=== PATIENT | female | born 2000 | race Caucasian/White ===

== ENCOUNTER 2023-12-22 08:26 | Day surgery (SDC) | payer BC, OTHER ==
[~2023-12-22 08:26] MED LIST: Sodium Chloride 0.9% 10 ML Syringe FLUSH PRN; Sodium Chloride 0.9% 10 ML Syringe FLUSH SCH
[2023-12-22] MEDS ORDERED: fentaNYL 100 MCG/2 ML SDV IVPUSH PRN (09:20)
[2023-12-22] MEDS ORDERED: Ondansetron 4 MG/2 ML SDV IVPUSH PRN (09:20)
[2023-12-22] MEDS ORDERED: HYDROmorphone 0.5 MG/0.5 ML Syringe IVPUSH PRN (09:20)
[2023-12-22] MEDS ORDERED: Propofol 200 MG/20 ML SDV ONE ×4 (09:34→10:18)
[2023-12-22] MEDS: Lactated Ringers 1,000 ML IV SCH (09:45)
[2023-12-22] MEDS ORDERED: dexmedeTOMIDine HCl 200 MCG/2 ML SDV ONE (10:05)
[2023-12-22] MEDS ORDERED: Phenylephrine 1% 10 MG/ML SDV ONE (10:23)
== END 2023-12-22 12:00 | disposition home or self-care (01) ==
LOC: JD.SDS 08:26
PROVIDERS: ATTEND Surgery
DX: K29.51 Unspecified chronic gastritis with bleeding (principal); K20.0 Eosinophilic esophagitis; F41.9 Anxiety disorder, unspecified; G89.29 Other chronic pain; Z79.899 Other long term (current) drug therapy; Z88.0 Allergy status to penicillin
CPT/HCPCS: 43239; 45378; 81025; J2371; J2704; J3490; J7120; 00813

== ENCOUNTER 2024-07-21 21:43 | Emergency (ER) | payer BC ==
[2024-07-21] MEDS: Ketorolac 60 MG/2 ML SDV IM ONE (22:00)
== END 2024-07-21 22:42 | disposition home or self-care (01) ==
LOC: JD.ED 21:43
DX: S60.031A Contusion of right middle finger without damage to nail, initial encounter (principal); Z88.0 Allergy status to penicillin; Z79.899 Other long term (current) drug therapy; W23.1XXA Caught, crushed, jammed, or pinched between stationary objects, initial encounter
CPT/HCPCS: 73140; 96372; 99283; J1885